=== PATIENT | female | born 1970 | race Two or more races ===

== ENCOUNTER 2018-01-16 09:42 | Day surgery (SDC) | payer OTHER ==
[2018-01-16] VITALS (9 sets, daily range): BP systolic 124–135; BP diastolic 74–85
[~2018-01-16] VITALS: Ht 152.4 cm; Wt 77.1 kg
--- NOTE | 2018-01-16 06:27 | Anethesia Preoperative Eval ---
Anesthesia Pre-op PMH/ROS General Date of Evaluation: Jan 16, 2018 Time of Evaluation: 06:27 Anesthesiologist: paul ASA Score: ASA 2 Mallampati Score Class I : Soft palate, uvula, fauces, pillars visible Class II: Soft palate, uvula, fauces visible Class III: Soft palate, base of uvula visible Class IV: Only hard plate visible Mallampati Classification: Class II Surgeon: ricky Diagnosis: gerd Surgical Procedure: egd Anesthesia History: none Social History: smoking - nonsmoker Family History: no anesthesia problems Allergies: Coded Allergies: No Known Allergies (Unverified , 01/16/18) Medications: see eMAR Past Medical History Gastrointestinal/Genitourinary: Reports: GERD, other - fatty liver Other: obesity Anesthesia Pre-op Phys. Exam Physician Exam Last Vital Signs Date Time Temp Pulse Resp B/P (MAP) Pulse Ox O2 Delivery O2 Flow Rate FiO2 01/16/18 10:38 98.0 85 18 135/74 (94) 100 98.0 01/16/18 10:37 Room Air Constitutional: NAD Neurologic: CN 2-12 intact Cardiovascular: RRR Respiratory: CTA Gastrointestinal: S/NT/ND Airway Exam Mallampati Score: Class II MO: full Neck: short TMD: 2fb ROM: full Teeth: intact Anesthesia Pre-op A/P Labs Labs Test 01/16/18 10:00 Urine HCG, Qualitative Negative (NEGATIVE) Risk Assessment & Plan Assessment: asa2 Plan: mac Status Change Before Surgery: No Pre-Antibiotics Drug: Luisa Breaux MD Jan 16, 2018 06:27
[~2018-01-16 09:42] MED LIST: Atropine Inj 1mg/10ml Syr IV PRN; DiphenhydrAMINE 50mg/ml Inj IVP PRN; LR 1000ml 1,000 ML IVLG SCH; Midazolam 2mg/2ml Inj IVP PRN; fentaNYL 100 mcg/2 mL IV PRN
--- NOTE | 2018-01-16 10:01 | Short Stay Surgery H&P ---
History of Present Illness History of Present Illness Chief Complaint Abdominal pains/GERDs HPI Cesar Hoffman is a 47 year old female who was admitted on for GERDS Patient History Allergies: Coded Allergies: No Known Allergies (Unverified , 01/15/18) PAST MEDICAL HISTORY: (1) Fatty liver (2) Hyperlipidemia Review of Systems Cardiovascular: Reports: no symptoms Respiratory: Reports: no symptoms Skeletal: Reports: trauma Gastrointestinal: Reports: gastro esophageal reflux disease Genitourinary: Reports: no symptoms Neurologic: Reports: no symptoms Endocrine: Reports: no symptoms Hematologic: Reports: no symptoms Physical Exam Skin: normal HENT: normal Heart: normal Lungs: normal Abdomen: abnormal Extremities: normal Genitourinary: normal Plan Plan of Care Upper Gi endsocopy with biopsy Preop Interventions None. Summary of Findings see the reports Attestation Are the patient's medical conditions optimized for surgery? Attestation Response: yes Elizabeth Osullivan MD Jan 16, 2018 10:01
--- NOTE | 2018-01-16 10:02 | Pre-Procedure Note/Attestation ---
Pre-Procedure Note/Attestation Complete Prior to Procedure Planned Procedure: left Procedure Narrative: Examiantion of the upper GI tract via endoscopy Indications for Procedure Pre-Operative Diagnosis: R/O Gastritis/Peptic ulcer Attestation I attest that I discussed the nature of the procedure; its benefits; risks and complications; and alternatives (and the risks and benefits of such alternatives ), prior to the procedure, with the patient (or the patient's legal pharmacy services representative). I attest that, if there was a reasonable possibility of needing a blood transfusion, the patient (or the patient's legal pharmacy services representative) was given the [facility] standardized written summary, pursuant to the [place] Blood Safety Act ([place] Health and Safety Code # 1645, as amended). I attest that I re-evaluated the patient just prior to the surgery and that there has been no change in the patient's H&P, except as documented below: Elizabeth Osullivan MD Jan 16, 2018 10:02
[2018-01-16] MEDS ORDERED: LR 1000ml ONE (10:30)
[2018-01-16] MEDS ORDERED: Propofol 200mg/20ml IV ONE (10:30)
[2018-01-16] MEDS ORDERED: Lidocaine 1% MPF 10mg/ml 5ml ONE (10:30)
[2018-01-16] MEDS ORDERED: NKM (10:42)
--- NOTE | 2018-01-16 11:10 | Endoscopy Procedure Note ---
Endoscopy Procedure Note General Indication for Procedure: Abdominal pains/GERDs. Procedures Performed: EGD - Completely normal upper GI. endoscopy, biopsy was obtained per random from gastriac body. Specimen: yes Pt Tolerated Procedure Well: Yes Estimated Blood Loss: none Anesthesia Anesthesiologist: Dr. Narayanan Anesthesia: moderate sedation Medications Medication Given: see anesthesia record Inserted Devices Implant(s) used?: No Quality Quality of Bowel Preparation: Excellent Was there any complications?: No GI Core Measures 50 yrs or older w/o bx or poly: Not Applicable 10yrs. F/U not recommended: Not Applicable If not recommended, why?: Med reason:<3 yrs.: System Reason:<3 yrs.: Elizabeth Osullivan MD Jan 16, 2018 11:10
--- NOTE | 2018-01-16 11:11 | Discharge Instructions ---
Discharge Instructions Discharge Instructions Follow up with: Visit the doctor after two weeks by calling first For Congestive Heart Failure Reminder Report to your physician any weight gain of 5 pounds or more in one week. Elizabeth Osullivan MD Jan 16, 2018 11:11
--- NOTE | 2018-01-16 11:12 | Discharge Instructions ---
Discharge Instructions Discharge Instructions Follow up with: see the docotor after two weeks by calling first For Congestive Heart Failure Reminder Report to your physician any weight gain of 5 pounds or more in one week. Elizabeth Osullivan MD Jan 16, 2018 11:12
--- NOTE | 2018-01-16 11:20 | Immediate Post-Op Evaluation ---
Immediate Post-Op Evalulation Immediate Post-Op Evalulation Procedure: egd w/bx Date of Evaluation: Jan 16, 2018 Time of Evaluation: 11:19 IV Fluids: 150ml lr Blood Products: none Estimated Blood Loss: negligible Blood Pressure Systolic: 131 Blood Pressure Diastolic: 83 Pulse Rate: 98 Respiratory Rate: 18 O2 Sat by Pulse Oximetry: 100 Temperature (Fahrenheit): 98.2 Pain Score (1-10): 0 Nausea: No Vomiting: No Complications none Patient Status: awake, reacts, patent Hydration Status: adequate Drug: Luisa Breuax MD Jan 16, 2018 11:19
--- NOTE | 2018-01-16 11:21 | 48 Hour Post Anesthesia Eval ---
Post Anesthesia Evaluation Procedure: egd w/bx Date of Evaluation: Jan 16, 2018 Time of Evaluation: 11:21 Blood Pressure Systolic: 129 0: 85 Pulse Rate: 82 Respiratory Rate: 18 Temperature (Fahrenheit): 98.2 O2 Sat by Pulse Oximetry: 100 Airway: patent Nausea: No Vomiting: No Pain Intensity: 0 Hydration Status: adequate Cardiopulmonary Status: stable Mental Status/LOC: patient returned to baseline Post-Anesthesia Complications: none Follow-up care needed: N/A Luisa Urban MD Jan 16, 2018 11:21
--- NOTE | 2018-01-16 13:30 | Procedure Note ---
DATE OF PROCEDURE: 01/16/2018 SURGEON: Elizabeth Osullivan M.D. PROCEDURE: Esophagogastroduodenoscopy with biopsy. PREOPERATIVE DIAGNOSIS: Abdominal pain, history of gastroesophageal acid reflux, rule out peptic ulcer disease. POSTOPERATIVE DIAGNOSIS: Completely normal upper GI endoscopy. Biopsy was taken per random from gastric body. MEDICATION: As per Dr. Narayanan, anesthesiologist. INSTRUMENT: GIF Olympus upper GI video endoscope. DESCRIPTION OF PROCEDURE: The patient after arriving endoscopy unit, was told about risks and benefits of the procedure, which she accepted and signed informed consent. She was then put on the left lateral decubitus position. After adequate IV sedation, the scope was gently passed through the cricopharyngeal area, was lodged into the upper esophagus and gradually advanced towards gastroesophageal junction. The entire length of the esophagus looked normal. GE junction also looked normal without any evidence of hiatal hernia or Hansen's. At this time, the scope was advanced into the stomach. Gastric cavity was distended with insufflation of air. The areas of the fundus and the body and the antrum were examined in transport tech fashion, which revealed no mucosal abnormality. There was no ulcers, tumors, polyps, etc. The retroflexion maneuver was also applied. The area of the gastroesophageal junction was examined in a closer fashion, which also revealed normal findings. At this time, one random biopsy from gastric body was obtained and subsequently scope was passed through the pylorus. First and second portion of duodenum were also found to be completely normal. At this time, the scope was pulled out and the procedure was terminated. The patient tolerated the procedure well and left the endoscopy room in good condition. Elizabeth Osullivan M.D. DR: SANTIAGO JOB#: [id number] CC:
--- NOTE | 2018-01-16 13:45 | Pre-op HX & Phy Repo 2 SIG ---
DATE OF ADMISSION: 01/16/2018 HISTORY OF PRESENT ILLNESS: The patient is a 47-year-old female who is being seen prior to undergoing the procedure for upper GI endoscopy for which she has been scheduled to receive for evaluation of gastrointestinal symptoms that she has been complaining subsequent to her work injury and life aftermath. The patient basically tells me that she has been experiencing pain over the upper part of the abdomen associated with significant amount of heartburn, which seems to have been aggravated by use such of nonsteroidal anti-inflammatory agents that she has been prescribed in the past for the treatment of bodily injury. She reports that these pains are sometimes quite severe and they recur on an intermittent basis. She does have significant heartburn as I mentioned consistent with gastroesophageal acid reflux, GERD. She also reports that subsequent to her work injury she has gained 10 pounds. 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 The patient reports that in a few occasions because of the slippery floor she fell down and she had injury over different parts of the body including back, shoulders, etc. Subsequent to that, she was seen by physicians and they started her on anti-inflammatory agents and strong analgesics as well. The applicant denies no vomiting blood or passing red blood per rectum. There is no history of dysphagia. There is no diarrhea or constipation. She reports that she has never had any gastrointestinal condition before being the patient injured at this job site. She tells me that basically her pains are over the lower back area and the left hand and the left wrist as she has fallen down on those sites in the past. The applicant basically did not take any medication for controlling of heartburn, though in the past she was diagnosed to have gastritis and was started on some PPIs such as omeprazole, which she did not continue. The patient reports that she never had any upper endoscopic examination for her condition. PAST MEDICAL HISTORY: The patient has had history of hypercholesterolemia and fatty liver. Otherwise, she denies hypertension, arthritis, etc. PAST SURGICAL HISTORY: None significant. ALLERGIES: None significant. HABITS: The applicant denies drinking alcohol or smoking cigarettes. MEDICATIONS: List of present medications, the patient was started on Gaviscon and omeprazole when I saw the patient approximately two to three weeks ago. Otherwise, in the past, she was not taking any other medications. REVIEW OF SYSTEMS: Basically history of present illness. She denies any shortness of breath, chest pain, etc. She basically complains of pain over the left hip area. She also complains of some anxiety and depression. PHYSICAL EXAMINATION: GENERAL: At this time reveals alert and oriented female, does not seem to be in any acute distress. She looks well developed and nourished and overweight obese. VITAL SIGNS: All stable. HEENT: Normocephalic. Pupils equal in size and reactive to light and accommodation. No visible jaundice. Buccal cavity, tongue midline, well hydrated. No ulcers. NECK: Supple. No JVD, thyromegaly, or adenopathy. CHEST: Clear to auscultation and percussion. No rales or rhonchi. HEART: S1 and S2 normal. Regular rhythm. No gallops or murmur. ABDOMEN: Obese and soft. There is minimal tenderness over part of the abdomen, left upper part, but there is no hepatosplenomegaly. No masses noted. EXTREMITIES: Unremarkable. PRELIMINARY IMPRESSION: 1. Epigastric pain of uncertain etiology, possible secondary to gastroesophageal acid reflux aggravated by usage of NSAID medications, rule out gastritis, peptic ulcer disease, etc. 2. History of bodily injury, orthopedic diagnosis. 3. History of fatty liver disease ([place]), nonindustrial. 4. Obesity. 5. Hyperlipidemia. RECOMMENDATION: This applicant seems to be stable at this time to undergo the procedure for upper GI endoscopy for which she has been scheduled. She understands the risks and benefits and will sign the consent. Said Sonia Osullivan DR: HUBER JOB#: [id number] CC:
== END 2018-01-16 12:00 | disposition home or self-care (01) ==
LOC: GAS 09:42
DX: K29.70 Gastritis, unspecified, without bleeding (principal); B96.81 Helicobacter pylori [H. pylori] as the cause of diseases classified elsewhere; E78.5 Hyperlipidemia, unspecified; E66.9 Obesity, unspecified; K76.0 Fatty (change of) liver, not elsewhere classified
CPT/HCPCS: 43239; 81025; J2704; 94003; 94150